=== PATIENT | male | born 1960 | race Caucasian/White ===

== ENCOUNTER 2016-04-15 19:36 | Inpatient (IN) | payer OTHER ==
[2016-04-15] MEDS ORDERED: PEPCID IV ONE (20:08)
[2016-04-15] MEDS ORDERED: SOLU-MEDROL IV ONE ×2 (20:08→20:33)
[2016-04-15] MEDS ORDERED: SODIUM CHLORIDE 0.9% INJ ONE ×2 (20:08→22:29)
[2016-04-15] MEDS ORDERED: BENADRYL IV ONE (20:08)
--- NOTE | 2016-04-15 20:12 | PROVIDER DOCUMENTATION ---
HPI-EENT General <Moe Jorgensen - Last Filed: 04/15/16 20:37> - General Source: patient - History of Present Illness-EENT General EENT Location: reports: nose, mouth Quality of Pain: reports: throbbing Onset/Duration: reports: 2 days ago Timing: reports: still present, getting worse (Over the last hour it is worse. But pt states he feels like it has not changed over the last 15 minutes.) Prearrival Treatment: Initiated no prearrival treatment Associated Symptoms: denies: cough, fever, sinus infection, sore throat <Kamaljit Cruz - Last Filed: 04/15/16 20:50> - General Chief Complaint: Edema Stated Complaint: FACE SWELLING Time Seen by Provider: 04/15/16 19:55 Allergies/Adverse Reactions: Patient Allergies Allergy/AdvReac Type Severity Reaction Status Date / Time No Known Allergies Allergy Verified 11/03/12 13:11 Home Medications: Home Medication List Medication Instructions Recorded Confirmed Last Taken Type Aspirin EC 81 mg PO DAILY 12/25/11 04/15/16 04/15/16 07:00 History Isosorbide Mononitrate [Imdur] 60 mg PO DAILY #30 tab.er.24h 12/25/11 04/15/16 04/15/16 07:00 Rx Lisinopril 40 mg PO DAILY 12/25/11 04/15/16 04/15/16 07:00 History Metoprolol Tartrate 50 mg PO BID 12/25/11 04/15/16 04/15/16 07:00 History Digoxin [Lanoxin] 250 microgm PO DAILY #30 tablet 01/05/12 04/15/16 04/15/16 07: 00 Rx Metformin [Glucophage] 1,000 mg PO BID CC 10/13/12 04/15/16 04/15/16 07:00 History Furosemide [Lasix] 40 mg PO BID #60 tablet 11/05/12 04/15/16 04/15/16 07:00 Rx Gabapentin [Neurontin] 300 mg PO DAILY 04/15/16 04/15/16 04/15/16 07:00 History Pravastatin Sodium 10 mg PO 04/15/16 04/14/16 20:00 History Spironolactone [Aldactone] 25 mg PO DAILY 02/04/15/16 04/15/16 07:00 History - History of Present Illness-EENT General Nature of Presenting Problem: Pt is a 56 y/o WM complaining of his lip and nose swelling and throbbing for 2 days. Pt states he is having problems breathing through his nose. (Kamaljit Cruz) Review of Systems - Adult - REVIEW OF SYSTEMS - ADULT Constitutional: denies: chills, fever Eyes: reports: no symptoms reported Ears, Nose, Mouth & Throat: reports: nose pain, mouth swelling Cardiovascular: reports: no symptoms reported Respiratory: denies: cough, shortness of breath, wheezing Gastrointestinal: reports: no symptoms reported Genitourinary: reports: no symptoms reported Musculoskeletal: reports: no symptoms reported Integumentary: reports: no symptoms reported Neurological: reports: no symptoms reported Psychiatric: reports: no symptoms reported Endocrine: reports: no symptoms reported Hematologic/Lymphatic: reports: no symptoms reported Allergic/Immunologic: reports: no symptoms reported All Other Systems: Reviewed and Negative <Kamaljit Cruz - Last Filed: 04/15/16 20:50> Past History - Adult - PAST MEDICAL HISTORY-ADULT Review of Records: reports: Old Records Reviewed, Nursing Assessment Review, Medications Reviewed Cardiovascular: reports: angina, [place] - SOCIAL HISTORY Smoking: non-smoker Substance Use: none/never <Kamaljit Cruz - Last Filed: 04/15/16 20:50> Physical Exam- EENT - Physical Exam EENT Initial Vital Signs Reviewed: Yes General Appearance: appears well, alert, no apparent distress Eye Exam: bilateral eye: normal inspection (3mm), PERRL, EOMI Ear Exam: bilateral ear: auricle normal, canal normal Eyes,Nose,Lips,Neck: 1 - angio edema Nasal Exam: other (nasal flares swollen and red left worse than right.). negative: normal inspection, active bleeding Throat Exam: pharynx swelling, pharynx tenderness. negative: normal mouth inspection Neck: full range of motion, supple, other (tender lower jaw line) Respiratory: lungs clear, normal breath sounds, no pleuratic chest pain Cardiovascular: normal peripheral pulses, regular rate, rhythm Abdominal Exam: normal bowel sounds, non tender, soft Back Exam: normal inspection, no CVA tenderness, no vertebral tenderness Extremity: normal range of motion, non-tender, normal gait, normal inspection Integumentary: normal color, normal turgor, warm/dry Neurologic: grossly normal, no motor/sensory deficits Psych/Mental Status: normal mood/affect, normal thought content, normal thought process, oriented x 3 <Kamaljit Cruz - Last Filed: 04/15/16 20:50> Progress - EKG 1 Time of EKG reading by physician:: 20:25 EKG Read and Signed by:: Deepak Suarez EKG Interpretation (*Must complete 3 of following elements*): Abnormal Rate: 88 Rhythm: NSR Comments: left financial auditor faxcicular block, inferior infarct, age undetermined - CONSULTS/PCP/HOSPITALIST Notification #1 *Consult/PCP/Hospitalist*: Dr Velasquez (Hospitalist) Time Discussed: 20:22 Reason/Comments: Admission: Accepts Consult Disposition: Will see in ED <Kamaljit Cruz - Last Filed: 04/15/16 20:50> Departure - Departure Time of Disposition Order: 20:20 Certified Medical Emergency: Emergent <Moe Jorgensen - Last Filed: 04/15/16 20:37> <Kamaljit Cruz - Last Filed: 04/15/16 20:50> - Departure DIAGNOSIS: Angioedema of lips Qualifiers: Encounter type: initial encounter Qualified Code(s): T78.3XXA - Angioneurotic edema, initial encounter Disposition: ADMITTED INPATIENT 09 Condition: Stable Referrals: Micha Szymanski MD [Primary Care Provider] - Attestation - Physician/ SANDRA Attestation Patient care was provided by Advanced Practice Provider:: Yes Advanced Practice Provider:: Moe Jorgensen Advanced Practice Provider documentation review:: The Mid-level provider documentation, treatment plan and medical decision making was reviewed by the physician who agrees with all treatment and medical decision making by the [facility]. <Moe Jorgensen - Last Filed: 04/15/16 20:37> - Scribe Verification/Attestation Scribe:: Kamaljit Cruz Acting as Scribe for:: Deepak Suarez Scribe documention review:: This chart was documented by a scribe and accurately reflects the service the provider performed and the decisions made by the provider. <Kamaljit Cruz - Last Filed: 04/15/16 20:50> Physician Attestation
[2016-04-15 20:33] LABS: MANUAL DIFF NEEDED? NO
[2016-04-15 20:42] LABS: BASO% 0.3 % (0.0-0.8); EOS# 0.22 X1000 (0.0-0.7); HEMATOCRIT 45.8 % (42.0-52.0); HEMOGLOBIN 15.9 g/dL (14.0-18.0); IMM GRAN# 0.03 X1000 (0.0-0.04); IMM GRAN% 0.3 % (0.0-0.5); LYMPH# 2.18 X1000 (1.2-3.4); LYMPH% 20.2 % (20.5-51.1); MCH 30.9 PG (27-31); MCHC 34.7 g/dL (33-37); MCV 89.1 FL (81-99); MONO# 1.22 X1000 (0.11-0.59); MONO% 11.3 % (1.7-9.3); MPV 9.9 FL (7.4-10.4); NEUT% 65.9 % (42.2-75.2); PLT 225 X1000 (130-400); RBC 5.14 XMIL (4.7-6.1)
[2016-04-15 20:48] LABS: INR 0.98; PROTIME 10.4 Seconds (9.2-11.7); PTT 27.8 Seconds (22.0-36.0)
[2016-04-15 21:00] LABS: AGAP 14; ALBUMIN 4.2 g/dL (3.5-5.0); ALKALINE PHOSPHATASE 45 U/L (32-122); BUN 13 mg/dL (8-22); CALCIUM 9.3 mg/dL (8.8-10.2); CHLORIDE 92 mmol/L (98-107); CK PROFILE 174 U/L (24-204); COSMO 271; GOT 18 U/L (10-34); GPT 32 U/L (10-44); MAGNESIUM 1.8 mg/dL (1.5-2.7); SODIUM 134 mmol/L (136-145); TCO2 28 mmol/L (25-35); TOTAL BILIRUBIN 0.33 mg/dL (0.20-1.00); TOTAL PROTEIN 7.2 g/dL (6.3-8.3)
--- NOTE | 2016-04-15 21:39 | HISTORY AND PHYSICAL ---
PRIMARY CARE PHYSICIAN: Micha Szymanski MD REASON FOR ADMISSION: 1/2 day history of upper lip and philtrum swelling. HISTORY OF PRESENT ILLNESS: Mr. Brian Phipps is a 56-year-old male with past medical history of coronary artery disease, type 2 diabetes, hypertension, hyperlipidemia. He has been taking lisinopril for the last 11 years he states and has not taken any new medications, otherwise. He states that day before yesterday he started noticing that his upper lip was slightly swollen and tender and noticed that this continued to progress over the course of the next 24 hours such that it involved his philtrum, but did not involve his tongue or lower lip. He denies any dysphagia, dystonia or any neck swelling. He denies any neck fullness, neck pain. He denies any pruritus. No swelling of the nasal passages. No cardiorespiratory complaints. No GI or complaints. No neurological complaints. No polyuria, polydipsia, polyphagia. No musculoskeletal complaints. He has chronic abdominal and extremity rash which is consistent with an ingrown hairs. Otherwise, 12 system review is negative. Positive findings per HPI. ALLERGIES: KADEN inhibitors. HOME MEDICATION: Aspirin 81 mg daily, lisinopril 40 mg daily, metoprolol 50 mg b.i.d., metformin 1000 mg b.i.d., Aldactone 25 mg daily, Neurontin 20 mg daily, pravastatin 10 mg daily, Imdur 60 mg daily, digoxin 250 mcg daily, furosemide 40 mg b.i.d. SURGICAL HISTORY: He has had CABG, defibrillator implanted. He has also had an inguinal hernia surgery. PAST MEDICAL HISTORY: See above, including sleep apnea, morbid obesity, and chronic systolic heart failure. He also has history of asthma, seasonal allergic rhinitis and contact dermatitis. FAMILY HISTORY: Notable for diabetes, stroke, heart disease. No cancer in first-degree relatives. SOCIAL HISTORY: He is , lives alone, no alcohol or illicit drug use. LABORATORY WORK/DIAGNOSTICS: Pending. The only lab work available, white count of 11,000, hemoglobin and hematocrit 15 and 45, platelets 225,000. Eosinophils normal. Other differentials are normal. Chest film is pending. EKG shows normal sinus rhythm with Q-waves in the inferior leads and nonspecific ST-T wave changes in the lateral leads. Normal axis. Chemistries pending. PHYSICAL EXAMINATION: GENERAL: Pleasant morbidly obese man, not in acute distress. VITAL SIGNS: Blood pressure 132/80, heart rate 99, temperature 99 degrees, respirations 18, 95% on room air. GENERAL: He is not in acute distress at this point in time. He has normal mood and affect. HEENT: Head is normocephalic, atraumatic. Eyes ROBERT, EOMI. He is anicteric and not pale. ENT and oropharyngeal examination, patient does have no swelling of the nasal turbinates, but there is some swelling of the philtrum extending to the upper lip. No swelling of the lower lip. No swelling of the tongue. The patient has severe pharyngeal crowding to the point he has i.e. large tonsils and uvula, such to the point I cannot visualize his posterior pharyngeal wall. NECK: Short and thick with some possible thyromegaly. No lymphadenopathy appreciated. No JVD. No carotid bruit. CHEST: Clear to auscultation. Good air entry both lung gloria. CARDIOVASCULAR: 1st and 2nd heart sounds heard. 2/6 ejection systolic murmur heard. Rhythm is regular. ABDOMEN: Protuberant, soft, no tenderness. No mass or organomegaly. Bowel sounds normal. RECTAL: Deferred at this time. EXTREMITIES: Patient has chronic hyperpigmentary changes with trace edema of the lower extremities consistent with chronic venous insufficiency. Pulses distally intact. No clubbing or cyanosis. NEUROLOGIC: No focal deficits. SKIN: Other than the aforementioned hyperpigmented changes and chronic rash on his abdomen, no other findings. MUSCULAR: Grossly normal. ASSESSMENT: 1. Angioedema probably secondary to KADEN inhibitors. 2. Type 2 diabetes. 3. Coronary artery disease. 4. Hypertension. 5. Hyperlipidemia. 6. Sleep apnea. 7. Asthma. 8. Seasonal allergic rhinitis. 9. Chronic dermatitis. 10. Chronic venous insufficiency. PLAN: 1. At this time, patient will be admitted to either ICU or CIC for close monitoring. We will start patient on/schedules H1 and H2 blockers with steroids. If patient's angioedema continues to progress while taking aspirin, this also needs to be considered as a possible etiology. 2. One may also need to consider the remote possibility of patient having Samter's triad which is not typical of this presentation. The patient may need ENT on consult to ensure patient does not have closure of his airway.
[2016-04-15] MEDS ORDERED: SOLU-MEDROL IV SCH (22:29)
[2016-04-15] MEDS ORDERED: ZOFRAN IV PRN (22:29)
[2016-04-15] MEDS ORDERED: HUMALOG SUBQ ONE (22:29)
[2016-04-15] MEDS ORDERED: TYLENOL PO PRN (22:29)
[2016-04-15] MEDS: LASIX PO SCH (22:55)
[2016-04-15] MEDS: LOVENOX SUBQ SCH (22:55)
[2016-04-15] MEDS: LOPRESSOR PO SCH (22:55)
[2016-04-15] MEDS: PRAVACHOL PO SCH (23:25)
[2016-04-15] MEDS ORDERED: NS 500 ML ONE (23:55)
[2016-04-16] MEDS: NS 500 ML ONE ×2 (00:39→00:40)
[2016-04-16] MEDS: BENADRYL IV SCH ×4 (03:03→21:10)
[2016-04-16 05:45] LABS: AGAP 13; BUN 17 mg/dL (8-22); CALCIUM 9.5 mg/dL (8.8-10.2); CHLORIDE 96 mmol/L (98-107); COSMO 276; POTASSIUM 4.9 mmol/L (3.5-5.1); SODIUM 134 mmol/L (136-145); TCO2 25 mmol/L (25-35)
--- NOTE | 2016-04-16 05:46 | EKG Report ---
Test Performed on : 04/15/2016 8:25:58 PM Test Reason : edema Blood Pressure : / mmHG Vent. Rate : 088 BPM Atrial Rate : 088 BPM P-R Int : 172 ms QRS Dur : 116 ms QT Int : 432 ms P-R-T Axes : -07 147 134 degrees QTc Int : 522 ms Normal sinus rhythm. Left posterior fascicular block Inferior infarct (cited on or before 06-AUG-2012) Abnormal ECG When compared with ECG of 26-FEB-2013 21:33, (Unconfirmed) FL interval has decreased T wave inversion no longer evident in Lateral leads QT has lengthened Unconfirmed Result
[2016-04-16 06:21] LABS: BASO% 0.1 % (0.0-0.8); HEMATOCRIT 43.7 % (42.0-52.0); HEMOGLOBIN 15.4 g/dL (14.0-18.0); LYMPH% 11.2 % (20.5-51.1); MANUAL DIFF NEEDED? YES; MCH 31.2 PG (27-31); MCHC 35.2 g/dL (33-37); MCV 88.5 FL (81-99); MONO% 2.2 % (1.7-9.3); MPV 9.9 FL (7.4-10.4); NEUT% 86.5 % (42.2-75.2); PLT 253 X1000 (130-400); RBC 4.94 XMIL (4.7-6.1)
--- NOTE | 2016-04-16 07:46 | Diag Imaging Result Document ---
PROCEDURE NAME: CHEST-PORTABLE - 04/15/2016 AP PORTABLE CHEST AT 2030 HOURS: FINDINGS: There is no evidence of acute pulmonary disease. There is a pacemaker on the left and there are sternotomy wires and anterior mediastinal surgical clips. Compared to 02/26/2013, the appearance of the chest has not changed significantly. IMPRESSION: No acute disease.
[2016-04-16] MEDS ORDERED: INSULIN PEN NEEDLES ONE (08:11)
[2016-04-16] MEDS: LASIX PO SCH ×2 (08:34→21:11)
[2016-04-16] MEDS: PEPCID IV SCH ×2 (08:34→21:10)
[2016-04-16] MEDS: NEURONTIN PO SCH (08:34)
[2016-04-16] MEDS: LOPRESSOR PO SCH ×2 (08:34→21:11)
[2016-04-16] MEDS: IMDUR PO SCH (08:34)
[2016-04-16] MEDS: ASPIRIN EC PO SCH (08:34)
[2016-04-16] MEDS: LANOXIN PO SCH (08:34)
[2016-04-16] MEDS: LANTUS SUBQ SCH (08:35)
[2016-04-16 08:44] LABS: LYMPHS 12 % (21-51)
--- NOTE | 2016-04-16 12:37 | PROGRESS NOTE ---
DATE: 04/16/2016 SUBJECTIVE: Today, Mr. Phipps referred to be doing okay. According to him, he started having some pain and swelling over the mid part of his face about 3 days now, which went down to the upper part of the upper gum, and since yesterday he noticed positive drainage down in his mouth. The patient presented to the emergency department. He was evaluated and admitted for possible angioedema. OBJECTIVE: Vital Signs: Blood pressure is 142/62, pulse of 66, respiration is 14 and temperature is 98.8 degrees. General: Mr. Phipps is a 56-year-old, male. He is in bed, no distress. HEENT: Mucosa is pink and moist. Anicteric. Acyanotic. He is morbidly obese. Mouth: The patient has a decayed right incisive tooth, and the gum above this is inflamed. There is a positive lower drainage from the upper part of the gum with surrounding erythematous changes. Chest: Good air entry bilateral. Cardiovascular: Regular rate and rhythm. There is a generator pocket on the left upper anterior chest wall. Abdomen: Distended, but nontender. Extremities: No pedal edema. He has chronic changes of stasis dermatitis on both lower extremities. LABORATORY DATA: WBC is 8.92, hemoglobin is 15.4, platelet count of 253. Chemistry: Sodium 134, potassium 4.9, chloride 95. ASSESSMENT: 1. Dental infection. 2. Suspected angioedema. 3. History of coronary artery disease with ischemic cardiomyopathy. Patient has a pacemaker. He is stable. 4. Dyslipidemia. 5. Hypertension. 6. Suspected obstructive sleep apnea. GENERAL PLAN: We are going to start the patient on Augmentin for dental infection. We will continue with p.o. steroids and Zyrtec for presumed allergies. Hopefully by tomorrow we should be able to discharge the patient. We have advised him to follow up with an ENT for the dental infection. We will start the patient on the losartan and advise him to stay away from lisinopril. We will observe him today on the losartan to make sure there is not any cross reaction.
--- NOTE | 2016-04-16 12:46 | CONSULTATION ---
DATE OF CONSULTATION: 04/16/2016 HISTORY OF PRESENT ILLNESS: A 56-year-old with a several day history of gradually enlarging swelling of the upper lip midline with the feeling of pressure and congestion behind the nose. No airway problems. Status-post root canals. Known poor dentition. The patient noted spontaneous drainage of blood and pus early this morning with improvement of swelling and improvement of pain. PAST MEDICAL HISTORY: Reviewed. SOCIAL HISTORY: Reviewed. FAMILY HISTORY: Reviewed. REVIEW OF SYSTEMS: As noted. PHYSICAL EXAMINATION: CONSTITUTIONAL: Well developed and well nourished. HEAD AND FACE: Normal appearance. NOSE: Clear anteriorly. ORAL CAVITY AND PHARYNX: Patient with probable abscess rupture site in the gingiva above very poor dentition, anterior maxilla. This is all at midline at the frenulum. Palpation reveals no acute tenderness or residual fluctuance. The airway is excellent. No edema of the palpate or floor of the mouth. NECK: No adenopathy. IMPRESSION: Gingival buccal abscess, anterior maxilla, from poor dentition. This has spontaneously ruptured and drained. No evidence of angioedema at this time. RECOMMENDATION: The patient will need evaluation and treatment by a dentist or oral surgeon to take care of the etiology of abscess. Agree with antibiotics.
[2016-04-16] MEDS: AUGMENTIN PO SCH ×2 (13:14→21:11)
[2016-04-16] MEDS: COZAAR PO SCH (13:14)
[2016-04-16] MEDS: ZYRTEC PO SCH (13:14)
[2016-04-16] MEDS ORDERED: SODIUM CHLORIDE 0.9% 10 ML ONE (19:57)
[2016-04-16] MEDS: PRAVACHOL PO SCH (21:11)
[2016-04-16] MEDS: LOVENOX SUBQ SCH (21:59)
[2016-04-17] MEDS: BENADRYL IV SCH ×2 (02:13→09:30)
[2016-04-17] MEDS ORDERED: SODIUM CHLORIDE 0.9% 10 ML ONE (06:57)
[2016-04-17] MEDS ORDERED: PREDNISONE PO SCH (09:00)
[2016-04-17] MEDS: LOPRESSOR PO SCH (09:28)
[2016-04-17] MEDS: NEURONTIN PO SCH (09:28)
[2016-04-17] MEDS: AUGMENTIN PO SCH (09:29)
[2016-04-17] MEDS: LANOXIN PO SCH (09:30)
[2016-04-17] MEDS: PEPCID IV SCH (09:30)
[2016-04-17] MEDS: IMDUR PO SCH (09:30)
[2016-04-17] MEDS: ZYRTEC PO SCH (09:30)
[2016-04-17] MEDS: LASIX PO SCH (09:30)
[2016-04-17] MEDS: COZAAR PO SCH (09:30)
[2016-04-17] MEDS: LANTUS SUBQ SCH (09:31)
[2016-04-17 12:21] VITALS: BP 122/56
--- NOTE | 2016-04-17 12:28 | DISCHARGE SUMMARY ---
ADMISSION DATE: 04/15/2016 DISCHARGE DATE: 04/17/2016 PERTINENT PROCEDURES: None. CONSULTATIONS: Dr. Rosen. DISCHARGE DIAGNOSES: 1. Gingival buccal abscess anterior maxilla from poor dentition. Spontaneously ruptured and drained. 2. Suspected angio edema resolved. 3. Coronary artery disease with ischemic cardiomyopathy with pacemaker, stable. 4. Dyslipidemia, stable. 5. Hypertension, stable. 6. Suspected obstructive sleep apnea. HOSPITAL COURSE: Mr. Phipps is a 56-year-old male with past medical history of coronary artery disease, diabetes mellitus type 2, hypertension, hyperlipidemia. He states he has been taken lisinopril for the last 11 years and has not taken any new medications. He states that the day before he came in he started noticing that his upper lip was slightly swollen, tender, and noticed that this continued to progress over the course of the next 24 hours such that it involved his philtrum, but did not involve his tongue or lower lip. No dysphagia, dystonia or neck swelling. No neck fullness or neck pain. No swelling of the nasal passages. No cardiorespiratory complaint. Also stated that he has a chronic abdominal and extremity rash consistent with ingrown hairs. The patient was admitted to [facility] for close monitoring. His KADEN inhibitors were stopped initially and scheduled on H1 and H2 blockers with steroids. Upon further investigation, the patient was found to have some drainage coming from the upper part of his upper gum since the day before his admission. He was started on Augmentin for his dental infection, continued on p.o. steroids as well as Zyrtec for his allergies. ENT was consulted. Dr. Rosen did come and see the patient. He did state that it was a gingival buccal abscess anterior maxilla from poor dentition, spontaneously ruptured and drained with no evidence of angioedema. He did agree with oral antibiotics as well as evaluation and treatment by a dentist or oral surgeon to take care of the etiology of the abscess. The patient is appropriate for discharge today. DISCHARGE EXAMINATION: Vital signs: Temperature is 97.5 degrees, heart rate 80 , respirations 18, blood pressure is 105/55, O2 is 98% on room air. DISCHARGE DIET: Healthy diabetic. DISCHARGE MEDICATIONS: 1. Aspirin 81 mg p.o. daily. 2. Lopressor 50 mg p.o. b.i.d. 3. Glucophage 1000 mg p.o. b.i.d. 4. Aldactone 25 mg p.o. daily. 5. Neurontin 300 mg p.o. daily. 6. Pravastatin 10 mg p.o. at bedtime. 7. Imdur 60 mg p.o. daily. 8. Digoxin 250 mcg p.o. daily. 9. Lasix 40 mg p.o. b.i.d. 10. Augmentin 875 p.o. q.12 hours for 10 days. 11. Cozaar 20 mg p.o. daily. 12. Prednisone 20 mg p.o. daily. 13. Zyrtec 10 mg p.o. daily. FOLLOWUP: The patient is being discharged home. He is to follow up with his primary care physician, Dr. Szymanski, as well as a dentist of his choice and/or oral surgeon. Patient can return to the ED for any worsening symptoms. DISCHARGE TIME: Greater than 30 minutes. Dictated by IHSAN Bautista for Benigno Hawthorne MD MTDD
[2016-04-17] MEDS: ASPIRIN EC PO SCH (13:20)
== END 2016-04-17 17:45 | disposition home or self-care (01) | DRG 158 ==
LOC: ED 19:36 → 3S 21:14
PROVIDERS: ATTEND Internal Medicine
PROC: 30233K1 Transfusion of Nonautologous Frozen Plasma into Peripheral Vein, Percutaneous Approach (ICD-10-PCS; principal; 2016-04-16)
DX: K12.2 Cellulitis and abscess of mouth (principal); I50.22 Chronic systolic (congestive) heart failure; K04.7 Periapical abscess without sinus; E66.01 Morbid (severe) obesity due to excess calories; I25.5 Ischemic cardiomyopathy; I25.10 Atherosclerotic heart disease of native coronary artery without angina pectoris; I10 Essential (primary) hypertension; J45.909 Unspecified asthma, uncomplicated; E11.9 Type 2 diabetes mellitus without complications; E78.5 Hyperlipidemia, unspecified; L30.9 Dermatitis, unspecified; I87.2 Venous insufficiency (chronic) (peripheral); G47.33 Obstructive sleep apnea (adult) (pediatric); Z79.899 Other long term (current) drug therapy; Z79.82 Long term (current) use of aspirin; Z79.84 Long term (current) use of oral hypoglycemic drugs; Z68.34 Body mass index [BMI] 34.0-34.9, adult; Z95.810 Presence of automatic (implantable) cardiac defibrillator; Z95.1 Presence of aortocoronary bypass graft
CPT/HCPCS: 71010; 80048; 80053; 82550; 82948; 83036; 83735; 83880; 84484; 85025; 85610; 85730; 86850; 86900; 86901; 93005; 96374; 96375; J1200; J1650; J2920; J2930; J7040; J7512; P9017; S0028

== ENCOUNTER 2016-04-19 15:03 | Emergency (ER) ==
--- NOTE | 2016-04-19 15:40 | PROVIDER DOCUMENTATION ---
HPI-General Adult - General Chief Complaint: General Adult Stated Complaint: SOB Time Seen by Provider: 04/19/16 15:18 Allergies/Adverse Reactions: Patient Allergies Allergy/AdvReac Type Severity Reaction Status Date / Time No Known Allergies Allergy Verified 11/03/12 13:11 Home Medications: Home Medication List Medication Instructions Recorded Confirmed Last Taken Type Aspirin EC 81 mg PO DAILY 12/25/11 04/19/16 04/17/16 08:00 History 81 MG Isosorbide Mononitrate [Imdur] 60 mg PO DAILY #30 tab.er.24h 12/25/11 04/19/16 04/17/16 08:00 Rx 60 MG Metoprolol Tartrate 50 mg PO BID 12/25/11 04/19/16 04/17/16 08:00 History 50 MG Digoxin [Lanoxin] 250 microgm PO DAILY #30 tablet 01/05/12 04/19/16 04/17/16 08: 00 Rx 250 MICROGM Metformin [Glucophage] 1,000 mg PO BID CC 10/13/12 04/19/16 04/17/16 08:00 History 1000 MG Furosemide [Lasix] 40 mg PO BID #60 tablet 11/05/12 04/19/16 04/17/16 08:00 Rx 40 MG Gabapentin [Neurontin] 300 mg PO DAILY 04/15/16 04/19/16 04/17/16 08:00 History 300 MG Pravastatin Sodium 10 mg PO QHS 04/15/16 04/19/16 04/17/16 08:00 History 10 MG Spironolactone [Aldactone] 25 mg PO DAILY 04/15/16 04/19/16 04/17/16 08:00 History 25 MG Amoxicillin/Pot Clavulanate 875 mg PO Q12HR #20 tablet 04/17/16 04/19/16 08:00 Rx [Augmentin] 875 MG Cetirizine [Zyrtec] 10 mg PO DAILY #7 tablet 04/17/16 04/19/16 04/17/16 08:00 Rx 10 MG Losartan [Cozaar] 25 mg PO DAILY #60 tablet 04/17/16 04/19/16 04/17/16 08:00 Rx 25 MG Prednisone 20 mg PO DAILY #5 tablet 04/17/16 04/19/16 04/17/16 08:00 Rx 20 MG - History of Present Illness -Gen Adult Nature of Presenting Problems: Pt with elevated blood pressure, was just released from the hospital 2 days ago but never got his medications filled so called the ambulance due to suspected HTN. Denies dyspnea or chest pains. Didn't fill his medication due to no ride to the pharmacy. The medications that were new from the hospitalization-Augmentin, Prednisone and Zyrtec--he has not filled these but has Rx All his other medications he has but they are at his brother's house--we will give this cardiac and BP meds now. Location of Pain/Injury: reports: none Quality of Pain: reports: none Onset/Duration: reports: 2 days ago (released from hospital-no medications since ) Timing: reports: still present Modifying Factors: improves with: nothing Associated Symptoms: reports: denies symptoms Recently seen or treated by another doctor?: Yes Review of Systems - Adult - REVIEW OF SYSTEMS - ADULT Constitutional: denies: chills, fever Eyes: reports: no symptoms reported Ears, Nose, Mouth & Throat: reports: no symptoms reported Cardiovascular: denies: chest pain, palpitations Respiratory: denies: cough, shortness of breath Gastrointestinal: denies: nausea, vomiting Genitourinary: reports: no symptoms reported Musculoskeletal: reports: no symptoms reported Integumentary: reports: no symptoms reported Neurological: denies: headache/migraines, slurred speech Psychiatric: reports: no symptoms reported Endocrine: reports: no symptoms reported Hematologic/Lymphatic: reports: no symptoms reported Allergic/Immunologic: reports: no symptoms reported All Other Systems: Reviewed and Negative Past History - Adult - PAST MEDICAL HISTORY-ADULT Review of Records: reports: Old Records Reviewed, Nursing Assessment Review, Medications Reviewed Cardiovascular: reports: angina, CHF (systolic), HTN, hyperlipidemia, [place] Respiratory: reports: sleep apnea - PRIOR SURGERIES/PROCEDURES Surgical/Procedure History: reports: CABG, pacemaker (defib), hernia repair, orthopedic (extremity) (knee) - SOCIAL HISTORY Smoking: non-smoker Physical Exam-General - PHYSICAL EXAM-ADULT Initial Vital Signs Reviewed: Yes (HTN) - CONSTITUTIONAL General Appearance: appears well, alert, no apparent distress - EYES Eyes: PERRL/EOMI, pink conjunctivae - HEAD, EARS, NOSE, MOUTH & THROAT HENMT: normocephalic/atraumatic, moist mucous membranes, normal ENT inspection - NECK Neck: non-tender, full range of motion, supple - RESPIRATORY Respiratory: chest non-tender, lungs clear, normal breath sounds - CARDIOVASCULAR Cardiovascular: normal peripheral pulses, regular rate, rhythm - GASTROINTESTINAL (ABDOMEN) Abdominal Exam: non tender, soft, no organomegaly - LYMPHATIC Lymphatic: no adenopathy. negative: striations - MUSCULOSKELETAL Back Exam: normal inspection, no CVA tenderness Extremity: normal range of motion, non-tender, normal capillary refill, pedal edema (trace) - SKIN Integumentary: normal color, normal turgor, warm/dry - NEUROLOGIC Neurologic: grossly normal - PSYCHIATRIC Psych/Mental Status: normal mood/affect Progress - EKG 1 Rate: 77 Rhythm: NSR [place]: normal QRS: NSIVCD MA Interval: prolonged (1st degree) ST Wave: normal Departure - Departure Time of Disposition Order: 16:32 DIAGNOSIS: Noncompliance with medication regimen, Accelerated essential hypertension Disposition: HOME 01 Certified Medical Emergency: Emergent Condition: Stable Additional Instructions: Fill and take your medications as prescribed. ED Follow Up Instructions: You have been treated by a care provider in the Emergency Department. These instructions are being provided to you so you can have an understanding of how to care for yourself upon discharge. Upon discharge from the Emergency Department, you are responsible for making arrangements for follow-up care by a physician of your choice. Take all prescribed medications as directed. Return to the Emergency Department immediately for any new or worsening symptoms. You may call the Physician Referral phone number at [phone] to obtain a list of Physicians who are taking new patients. Referrals: Micha Szymanski MD [Primary Care Provider] -
[2016-04-19] MEDS ORDERED: LANOXIN PO ONE (15:56)
[2016-04-19] MEDS ORDERED: AUGMENTIN PO ONE (15:56)
[2016-04-19] MEDS ORDERED: ALDACTONE PO ONE (15:56)
[2016-04-19] MEDS ORDERED: LASIX PO ONE (15:56)
[2016-04-19] MEDS ORDERED: LOPRESSOR PO ONE (15:56)
[2016-04-19] MEDS ORDERED: ASPIRIN PO ONE (15:56)
[2016-04-19 16:00] VITALS: BP 204/111
[2016-04-19 16:23] LABS: MANUAL DIFF NEEDED? NO
--- NOTE | 2016-04-19 16:26 | Diag Imaging Result Document ---
PROCEDURE NAME: CHEST-2 VIEWS - 04/19/2016 2 VIEWS THE CHEST: FINDINGS: There is cardiomegaly. There is a pacemaker. The lungs are clear. Compared to 04/15/2016, the lingula is clearer than it was. IMPRESSION: No acute disease.
[2016-04-19 16:30] LABS: BASO% 0.4 % (0.0-0.8); EOS# 0.32 X1000 (0.0-0.7); EOS% 4.6 % (0.0-10.0); HEMATOCRIT 44.4 % (42.0-52.0); HEMOGLOBIN 15.6 g/dL (14.0-18.0); IMM GRAN# 0.03 X1000 (0.0-0.04); IMM GRAN% 0.4 % (0.0-0.5); LYMPH# 1.83 X1000 (1.2-3.4); LYMPH% 26.2 % (20.5-51.1); MCHC 35.1 g/dL (33-37); MCV 88.3 FL (81-99); MONO# 0.64 X1000 (0.11-0.59); MONO% 9.2 % (1.7-9.3); MPV 9.5 FL (7.4-10.4); NEUT% 59.2 % (42.2-75.2); PLT 242 X1000 (130-400); RBC 5.03 XMIL (4.7-6.1)
[2016-04-19 16:38] LABS: INR 1.03; PROTIME 10.9 Seconds (9.2-11.7); PTT 25.9 Seconds (22.0-36.0)
[2016-04-19 16:53] LABS: AGAP 10; ALBUMIN 3.8 g/dL (3.5-5.0); ALKALINE PHOSPHATASE 46 U/L (32-122); BUN 19 mg/dL (8-22); CALCIUM 9.3 mg/dL (8.8-10.2); CHLORIDE 99 mmol/L (98-107); CK PROFILE 76 U/L (24-204); COSMO 279; GOT 17 U/L (10-34); GPT 30 U/L (10-44); MAGNESIUM 2.1 mg/dL (1.5-2.7); POTASSIUM 4.3 mmol/L (3.5-5.1); SODIUM 138 mmol/L (136-145); TCO2 29 mmol/L (25-35); TOTAL BILIRUBIN 0.28 mg/dL (0.20-1.00); TOTAL PROTEIN 6.5 g/dL (6.3-8.3)
== END 2016-04-19 16:43 | disposition home or self-care (01) ==
LOC: EDBD → SUPCPDRO 15:03 → ED 15:03
DX: I10 Essential (primary) hypertension (principal); R06.02 Shortness of breath; R60.0 Localized edema; I50.20 Unspecified systolic (congestive) heart failure; E78.5 Hyperlipidemia, unspecified; I25.2 Old myocardial infarction; Z79.82 Long term (current) use of aspirin; Z79.899 Other long term (current) drug therapy; Z91.14 Patient's other noncompliance with medication regimen; Z95.1 Presence of aortocoronary bypass graft; Z95.810 Presence of automatic (implantable) cardiac defibrillator
CPT/HCPCS: 71020; 80053; 82550; 83735; 83880; 84484; 85025; 85379; 85610; 85730; 93005